=== PATIENT | female | born 1965 | race African-American/Black ===

== ENCOUNTER 2017-10-03 08:33 | Emergency (ER) | payer SELFPAY ==
[~2017-10-03] VITALS: Ht 165.1 cm; Wt 57.7 kg
[2017-10-03 09:33] LABS: CHLORIDE 108 mEq/L (99-109); POTASSIUM 3.9 mEq/L (3.7-5.4); SODIUM 138 mEq/L (136-147)
[2017-10-03 09:34] LABS: GLUCOSE 76 mg/dL (70-99)
[2017-10-03 09:37] LABS: HEMATOCRIT 29.4 % (36.0-46.0); HEMOGLOBIN 8.8 G/DL (11.9-15.5); MCH 20.8 PG (29.0-34.0); MCHC 29.9 G/DL (30.0-36.0); MCV 69.3 FL (83-99); PLATELET COUNT 257 K/uL (156-360); RBC DIS.WIDTH-CV 19.7 % (11.8-14.6); RBC DIS.WIDTH-SD 49.1 % (39-53); RED BLOOD COUNT 4.24 M/uL (3.80-5.20); WHITE BLOOD COUNT 5.3 K/uL (4.1-10.2)
[2017-10-03 09:38] LABS: GFR ESTIMATE (CALCULATED) > 59 mL/min/
[2017-10-03 09:39] LABS: UREA NITROGEN (BUN) 22 mg/dL (9-23)
[2017-10-03 11:15] VITALS: BP 147/99
== END 2017-10-03 11:15 | disposition home or self-care (01) ==
LOC: EME 08:33
PROVIDERS: Nurse Practitioner Family
DX: K12.0 Recurrent oral aphthae (principal); D64.9 Anemia, unspecified; F12.90 Cannabis use, unspecified, uncomplicated; Z88.0 Allergy status to penicillin
CPT/HCPCS: 80048; 85027; 87651 90; 99281; 99284